=== PATIENT | female | born 1970 | race Caucasian/White ===

== ENCOUNTER 2016-06-19 22:24 | Emergency (ER) | payer SELFPAY ==
[2016-04-13 22:10] VITALS: BP 138/87
[~2016-06-19] VITALS: Ht 167.6 cm; Wt 136.1 kg
[~2016-06-19 22:24] MED LIST: CYCL10TA2 PO; NAPR500T8 PO
--- NOTE | 2016-06-19 22:42 | PHYS DOC ---
Past Medical History Past Medical History: Hypertension Past Surgical History: Appendectomy, Cholecystectomy, Tonsillectomy, Tubal ligation Additional Past Surgical Histo: THYROIDECTOMY, L MENISCUS, R TENDON FOOT, L ANKLE FX Alcohol Use: None Drug Use: None Adult General Chief Complaint Chief Complaint: WRIST PAIN HPI HPI Patient is a 46 year old female presents emergency department stating that she was walking up her basement stairs today when she fell about 9 AM this morning. She is unsure how she landed on her right arm. She is stating that she is having hand wrist and forearm pain and discomfort. She states that she has been taken ibuprofen for the pain and discomfort with minimal relief. She does state she her right ankle although she does not feel that the right ankle needs to be evaluated. Patient denies any numbness or tingling into her right hand. Patient does states she is right-hand dominant. She is able to move her fingers without difficulty. She does have good sensation. Peripheral pulses 2+ cap refill brisk less than 2 seconds. Review of Systems Review of Systems Constitutional: Denies fever or chills [] Eyes: Denies change in visual acuity, redness, or eye pain [] HENT: Denies nasal congestion or sore throat [] Respiratory: Denies cough or shortness of breath [] Cardiovascular: No additional information not addressed in HPI [] GI: Denies abdominal pain, nausea, vomiting, bloody stools or diarrhea [] : Denies dysuria or hematuria [] Musculoskeletal: Denies back pain. Right hand, wrist and forearm pain Integument: Denies rash or skin lesions [] Neurologic: Denies headache, focal weakness or sensory changes [] Allergies Allergies Allergies Coded Allergies Type Severity Reaction Last Updated Verified GERARDO Inhibitors Allergy Unknown 04/13/16 No acetaminophen Allergy Unknown 04/13/16 No codeine Allergy Unknown 04/13/16 No fentanyl Allergy Unknown 04/13/16 No hydromorphone Allergy Unknown 04/13/16 No propoxyphene Allergy Unknown 04/13/16 No Physical Exam Physical Exam Constitutional: Well developed, well nourished, no acute distress, non-toxic appearance. [] HENT: Normocephalic, atraumatic, bilateral external ears normal, oropharynx moist, no oral exudates, nose normal. [] Eyes: PERRLA, EOMI, conjunctiva normal, no discharge. [] Neck: Normal range of motion, no tenderness, supple, no stridor. [] Cardiovascular:Heart rate regular rhythm, no murmur [] Lungs & Thorax: Bilateral breath sounds clear to auscultation [] Skin: Warm, dry, no erythema, no rash. [] Back: No tenderness Extremities: Right hand, wrist and forearm tenderness, no cyanosis, no clubbing , ROM intact, no edema. Full pulses 2+ cap refill brisk less than 2 seconds. Good sensation noted. Patient does have range of motion of the fingers. No deformity or discoloration noted Neurologic: Alert and oriented X 3, normal motor function, normal sensory function, no focal deficits noted. [] Psychologic: Affect normal, judgement normal, mood normal. [] Current Patient Data Vital Signs Vital Signs Date Time Temp Pulse Resp B/P Pulse Ox O2 Delivery O2 Flow Rate FiO2 06/19/16 22:41 110 95 Room Air EKG EKG [] Radiology/Procedures Radiology/Procedures [] Course & Med Decision Making Course & Med Decision Making Pertinent Labs and Imaging studies reviewed. (See chart for details) X-rays are negative. Patient was placed in an Gerardo wrap recommended ice packs elevation as much as possible. Patient will be discharged home with recommendations for Tylenol and ibuprofen. Patient will be discharged home in stable condition since symptoms to return back to emergency department been provided. [] Dragon Disclaimer Dragon Disclaimer This electronic medical record was generated, in whole or in part, using a voice recognition dictation system. Departure Departure Impression: Primary Impression: Sprain of wrist, right Disposition: HOME, SELF-CARE Condition: STABLE Referrals: NO PCP (PCP) Patient Instructions: Wrist Pain, [id number] Additional Instructions: Activity as tolerated. Tylenol or ibuprofen for pain and discomfort. Ice packs on 20 minutes off 20 minutes several times a day. With the Gerardo wrap for the next 7-10 days. Follow-up with orthopedic as needed in one week. Return back to emergency prior signs symptoms of become worse. KAYLI DARDEN NP Jun 19, 2016 22:42
--- NOTE | 2016-06-20 07:31 | RAD ---
EXAM: 1. Right forearm 2 views. 2. Right wrist 3 views. 3. Right hand 3 views. HISTORY: Right forearm, wrist and hand pain after fall downstairs. COMPARISON: None. FINDINGS: No fractures are appreciated within the forearm. The joint spaces and alignment at the elbow appear maintained. No fractures are appreciated within the right hand or wrist. Joint spaces and alignment are maintained throughout. IMPRESSION: 1. No fracture or malalignment.
== END 2016-06-19 23:13 | disposition home or self-care (01) ==
LOC: ER 22:24
DX: S63.501A Unspecified sprain of right wrist, initial encounter (principal); M79.631 Pain in right forearm; I10 Essential (primary) hypertension; E89.0 Postprocedural hypothyroidism; Z90.49 Acquired absence of other specified parts of digestive tract; Z98.51 Tubal ligation status; Z88.5 Allergy status to narcotic agent; Z88.8 Allergy status to other drugs, medicaments and biological substances; W10.8XXA Fall (on) (from) other stairs and steps, initial encounter; Y93.01 Activity, walking, marching and hiking; Y92.89 Other specified places as the place of occurrence of the external cause; Y99.8 Other external cause status
CPT/HCPCS: 73090; 73110; 73130; 99284

== ENCOUNTER 2016-08-07 18:48 | Emergency (ER) | payer OTHER ==
[~2016-08-07] VITALS: Ht 167.6 cm; Wt 136.1 kg
[2016-08-07 19:45] VITALS: BP 133/79
[2016-08-07] MEDS ORDERED: HYDR-971 PO (21:51)
--- NOTE | 2016-08-07 21:51 | PHYS DOC ---
Past Medical History Past Medical History: Hypertension, Hypothyroid Past Surgical History: Appendectomy, Cholecystectomy, Tonsillectomy, Tubal ligation Additional Past Surgical Histo: THYROIDECTOMY, L MENISCUS, R TENDON FOOT, L ANKLE FX Alcohol Use: None Drug Use: None Adult General Chief Complaint Chief Complaint: FOOT INJURY PAIN HPI HPI Patient is a 46 year old female with history of hypertension and hypothyroidism who presents with left lateral ankle pain that began after she stepped on uneven gravel and rolled her ankle at work. Patient denies any loss of consciousness. Review of Systems Review of Systems Constitutional: Denies fever or chills [] Eyes: Denies change in visual acuity, redness, or eye pain [] Musculoskeletal: Left lateral ankle pain Integument: Denies rash or skin lesions [] Neurologic: Denies headache, focal weakness or sensory changes [] Endocrine: Denies polyuria or polydipsia [] Allergies Allergies Allergies Coded Allergies Type Severity Reaction Last Updated Verified PAUL Inhibitors Allergy Unknown 04/13/16 No acetaminophen Allergy Unknown 04/13/16 No codeine Allergy Unknown 04/13/16 No fentanyl Allergy Unknown 04/13/16 No hydromorphone Allergy Unknown 04/13/16 No propoxyphene Allergy Unknown 04/13/16 No Physical Exam Physical Exam Constitutional: Well developed, well nourished, no acute distress, non-toxic appearance. [] HENT: Normocephalic, atraumatic, bilateral external ears normal, oropharynx moist, no oral exudates, nose normal. [] Skin: Warm, dry, no erythema, no rash. [] Back: No tenderness, no CVA tenderness. [] Extremities: Left ankle with no obvious deformity. Small amount of soft tissue swelling noted around the left ankle. Tenderness on palpation of the left ankle especially on the lateral aspect. Limited range of motion to the left ankle pain. Slight tenderness on palpation of the left lateral foot. No pain or tenderness on the navicular bone or the this of the fifth metatarsal of the left foot. +2 left pedal pulse. Cap refill less than 2 seconds the left lower extremity. Sensation intact to the left lower extremity. Neurologic: Alert and oriented X 3, normal motor function, normal sensory function, no focal deficits noted. [] Psychologic: Affect normal, judgement normal, mood normal. [] Current Patient Data Vital Signs Vital Signs Date Time Temp Pulse Resp B/P Pulse Ox O2 Delivery O2 Flow Rate FiO2 08/07/16 19:45 97.7 92 18 98 Room Air 97.7 EKG EKG [] Radiology/Procedures Radiology/Procedures [] Course & Med Decision Making Course & Med Decision Making Pertinent Labs and Imaging studies reviewed. (See chart for details) Patient is in the ED with left lateral ankle pain after rolling her ankle. Left ankle and foot x-rays interpreted by Dr. Arteaga was noted for a broken orthopedic hardware. Patient was placed in a left stirrup splint by the fire protection equipment technician, neurovascular exam done by me is normal, cap refill less than 2 seconds. Instructed to follow-up with orthopedic doctor by calling his office tomorrow. Dragon Disclaimer Dragon Disclaimer This electronic medical record was generated, in whole or in part, using a voice recognition dictation system. Departure Departure Impression: Primary Impression: Fall from standing Additional Impression: Retained orthopedic hardware Disposition: HOME, SELF-CARE Condition: STABLE Referrals: NO PCP (PCP) HOLLY HUNG MD Call the orthopedic doctor provided and follow-up as soon as possible Patient Instructions: Fall Prevention and Home Safety Additional Instructions: Your ankle x-ray shows orthopedic hardware is broken. Please do not bear any weight on the left lower extremity. Call the provided orthopedic doctor tomorrow morning and get a follow-up appointment as soon as possible. Scripts Hydrocodone/Apap 5-325 (Bradley 5-325 Tablet)1 Each Tablet1-2 Tab PO Q4-6HRS #25 TAB Prov:JUAN ANTONIOMARLO SORENSON 08/07/16 Problem Qualifiers Primary Impression: Fall from standing Encounter type: initial encounter Qualified Code: W19.XXXA - Unspecified fall, initial encounter [facility] Aug 07, 2016 21:51
--- NOTE | 2016-08-08 08:45 | RAD ---
Three-view left ankle radiographs 08/07/2016 Clinical history: Injury to the left ankle earlier today with pain. AP, lateral, and oblique digital radiographs of the left ankle were obtained. No previous studies are available for comparison. A bone screw is seen extending from the lateral aspect of the distal diaphysis/metaphysis of the left fibula to the distal left tibia. It is fractured in its proximal third. The age of the fracture hardware is uncertain. No acute fracture or dislocation of the left ankle seen. Moderate enthesophyte formation is seen involving the plantar aspect of the posterior left calcaneus. Impression: 1. The bone screw extending across the distal left fibula/tibia is fractured in its proximal third. This is of uncertain age. 2. No acute fracture or dislocation of the left ankle is seen.
--- NOTE | 2016-08-08 08:47 | RAD ---
Left foot, 3 views, 08/07/2016: History: Foot injury No foot fracture or dislocation is identified. There is mild spurring at the midfoot level. There is a small inferior calcaneal spur. A fractured surgical screw is noted traversing the distal tibia and fibula. IMPRESSION: No acute left foot abnormality is detected.
== END 2016-08-07 22:01 | disposition home or self-care (01) ==
LOC: ER 18:48
DX: M25.472 Effusion, left ankle (principal); I10 Essential (primary) hypertension; E89.0 Postprocedural hypothyroidism; Z88.8 Allergy status to other drugs, medicaments and biological substances; Z88.5 Allergy status to narcotic agent; Z88.4 Allergy status to anesthetic agent; Z98.890 Other specified postprocedural states; Z87.81 Personal history of (healed) traumatic fracture; W18.39XA Other fall on same level, initial encounter; Y93.89 Activity, other specified; Y92.69 Other specified industrial and construction area as the place of occurrence of the external cause; Y99.8 Other external cause status
CPT/HCPCS: 29515; 73610; 73630; 99284-25

== ENCOUNTER 2018-06-11 00:49 | Emergency (ER) | payer SELFPAY ==
[~2018-06-11] VITALS: Ht 167.6 cm; Wt 136.1 kg
[2018-06-11 00:49] VITALS: BP 139/70
[~2018-06-11 00:49] MED LIST changes: +HYDR-3164 PO
--- NOTE | 2018-06-11 02:09 | PHYS DOC ---
Past Medical History Past Medical History: Diabetes-Type II, Hypertension, Hypothyroid Past Surgical History: Appendectomy, Cholecystectomy, Tonsillectomy, Tubal ligation Additional Past Surgical Histo: THYROIDECTOMY, L MENISCUS, R TENDON FOOT, L ANKLE FX Alcohol Use: None Drug Use: None Adult General Chief Complaint Chief Complaint: HYPERTENSION HPI HPI Patient is a 48 year old female who presents with high blood pressure. Patient feeling poorly this evening took her blood pressure noted that was higher than usual. Patient is treated for high blood pressure, no recent changes in her medication. She was also having a little bit of a headache. Not worst headache of life. Patient did take ibuprofen for this. Patient has been having issues over the past several weeks with spikes of elevated blood pressure. Patient denies any chest pain, palpitations, cough, leg swelling, or dyspnea on exertion [] Review of Systems Review of Systems Constitutional: Denies fever or chills [] Eyes: Denies change in visual acuity, redness, or eye pain [] HENT: Denies nasal congestion or sore throat [] Respiratory: Denies cough or shortness of breath [] Cardiovascular: No additional information not addressed in HPI [] GI: Denies abdominal pain, nausea, vomiting, bloody stools or diarrhea [] : Denies dysuria or hematuria [] Musculoskeletal: Denies back pain or joint pain [] Integument: Denies rash or skin lesions [] Neurologic: Denies focal weakness or sensory changes [] Endocrine: Denies polyuria or polydipsia [] All other systems were reviewed and found to be within normal limits, except as documented in this note. Allergies Allergies Allergies Coded Allergies Type Severity Reaction Last Updated Verified PAUL Inhibitors Allergy Unknown 04/13/16 No acetaminophen Allergy Unknown 04/13/16 No codeine Allergy Unknown 04/13/16 No fentanyl Allergy Unknown 04/13/16 No hydromorphone Allergy Unknown 04/13/16 No propoxyphene Allergy Unknown 04/13/16 No Physical Exam Physical Exam Constitutional: Well developed, well nourished, no acute distress, non-toxic appearance. [] HENT: Normocephalic, atraumatic, bilateral external ears normal, oropharynx moist, no oral exudates, nose normal. [] Eyes: PERRLA, EOMI, conjunctiva normal, no discharge. Normal funduscopic exam[] Neck: Normal range of motion, no tenderness, supple, no stridor. [] Cardiovascular:Heart rate regular rhythm, no murmur [] Lungs & Thorax: Bilateral breath sounds clear to auscultation [] Abdomen: Bowel sounds normal, soft, no tenderness, no masses, no pulsatile masses. [] Skin: Warm, dry, no erythema, no rash. [] Back: No tenderness, no CVA tenderness. [] Extremities: No tenderness, no cyanosis, no clubbing, ROM intact, no edema. [] Neurologic: Alert and oriented X 3, normal motor function, normal sensory function, no focal deficits noted. [] Psychologic: Affect normal, judgement normal, mood normal. [] Current Patient Data Vital Signs Vital Signs Date Time Temp Pulse Resp B/P (MAP) Pulse Ox O2 Delivery O2 Flow Rate FiO2 06/11/18 00:49 98.5 70 20 139/70 (93) 98 Room Air 98.5 EKG EKG [] Radiology/Procedures Radiology/Procedures [] Course & Med Decision Making Course & Med Decision Making Pertinent Labs and Imaging studies reviewed. (See chart for details) ED course: Patient arrived, was placed in bed, tolerated exam well. Patient's blood pressure was noted to be in the 130s systolic without any interventions. Patient reported feeling much better. There is no evidence of end organ dysfunction based on physical exam. No worsening of life. No dyspnea on exertion or chest pain. Had an extensive discussion with the patient regarding dietary approaches to stop hypertension along with the diet as well as potentially reversing her diabetes, and will include information from recent head talking her discharge instructions. Patient voiced understanding. All questions were answered.[] Dragon Disclaimer Dragon Disclaimer This electronic medical record was generated, in whole or in part, using a voice recognition dictation system. Departure Departure Impression: Primary Impression: Episode of hypertension Disposition: HOME, SELF-CARE Condition: IMPROVED Referrals: NO PCP (PCP) Patient Instructions: DASH Diet, Hypertension Additional Instructions: Follow-up with your regular doctor in 2 days. Drink plenty of fluids. Return to the ER if worsening headache, any chest pain, or any other concerns. Here are some of the links to additional information we discussed: Reversing type 2 diabetes starts with nor in the guidelines: https://[email or web address].com/watch ?[email or web address] Nutritionfacts.org https://www.pcrm.org/ physicians committee for responsible medicine HARRIET DA SILVA DO Jun 11, 2018 02:09
--- NOTE | 2018-06-14 15:15 | EKG ---
[facility] [address] [place] [address] Test Date: 2018-06-11 Test Time: 00:53:02 Pat Name: CARLIE GRAVES Department: Room: Gender: Analyst [employer]: : 1970 Requested By: HARRIET DA SILVA Order Number: [id number] Reading MD: Zackery John Measurements Intervals [place] Rate: P: [place]: QRS: QRSD: T: QT: QTc: Interpretive Statements No previous ECG available for comparison Electronically Signed On 06-16-2018 8:37:59 COMPUTER [employer] by Zackery John
== END 2018-06-11 02:11 | disposition home or self-care (01) ==
LOC: ER 00:49
DX: I10 Essential (primary) hypertension (principal); E11.9 Type 2 diabetes mellitus without complications; E03.9 Hypothyroidism, unspecified; Z90.49 Acquired absence of other specified parts of digestive tract; Z90.89 Acquired absence of other organs; Z98.51 Tubal ligation status; Z88.5 Allergy status to narcotic agent; Z88.8 Allergy status to other drugs, medicaments and biological substances; Z88.6 Allergy status to analgesic agent
CPT/HCPCS: 93005; 99281; 99283